=== PATIENT | male | born 1970 | race Caucasian/White ===

== ENCOUNTER 2017-08-24 11:26 | Emergency (ER) | payer OTHER ==
[~2017-08-24] VITALS: Ht 180.3 cm; Wt 145.1 kg
[2017-08-24 11:33] VITALS: BP_SYST 135
[2017-08-24] MEDS ORDERED: DIPH-TET-PERTUS Vaccine 0.5 ML VIAL (ADACEL) I.M. ONE (12:00)
[2017-08-24 12:48] VITALS: BP_SYST 128
== END 2017-08-24 12:48 | disposition home or self-care (01) ==
LOC: SED 11:26
DX: S62.661B Nondisplaced fracture of distal phalanx of left index finger, initial encounter for open fracture (principal); R03.0 Elevated blood-pressure reading, without diagnosis of hypertension; W22.8XXA Striking against or struck by other objects, initial encounter; Y93.89 Activity, other specified; Y92.89 Other specified places as the place of occurrence of the external cause; Y99.8 Other external cause status
CPT/HCPCS: 73140-TC; 90715; 99284

== ENCOUNTER 2017-09-03 11:14 | Emergency (ER) | payer OTHER ==
[~2017-09-03] VITALS: Ht 180.3 cm; Wt 145.1 kg
[2017-09-03 11:37] VITALS: BP_SYST 123
--- NOTE | 2017-09-03 11:41 | NUR ---
Pt to bed 1
--- NOTE | 2017-09-03 11:42 | NUR ---
Sutures removed by Dr. Slater. Site well approximated. No bleeding
--- NOTE | 2017-09-03 11:42 | NUR ---
ER Dr. Slater at bedside examining patient.
--- NOTE | 2017-09-03 11:49 | NUR ---
Patient given written and verbal discharge instructions and verbalizes understanding. ER MD discussed with patient the results and treatment provided. Patient in stable condition. ID arm band removed. No Rx given. Patient educated on pain management and to follow up with PMD. Pain Scale 0/10. Opportunity for questions provided and answered.
[2017-09-03 11:50] VITALS: BP_SYST 123
== END 2017-09-03 11:49 | disposition home or self-care (01) ==
LOC: SED 11:14
DX: S61.211D Laceration without foreign body of left index finger without damage to nail, subsequent encounter (principal); R03.0 Elevated blood-pressure reading, without diagnosis of hypertension; X58.XXXD Exposure to other specified factors, subsequent encounter
CPT/HCPCS: 99281